=== PATIENT | female | born 1940 | race Caucasian/White ===

== ENCOUNTER → 2018-10-26 | Outpatient (CLI) | payer OTHER | LOC: MRI 10:00 | DX: M47.26 Other spondylosis with radiculopathy, lumbar region (principal) ==

== ENCOUNTER → 2019-05-12 | Outpatient (CLI) | payer OTHER ==
[~2019-05-12] VITALS: Ht 154.9 cm; Wt 76.2 kg
[~2019-05-12] MED LIST: ALLERGY25 MG PO; APAP650 PO; BREO ELLIPTA 11 EACH INH; CYCLOBENZAPRINE5 MG PO; DICLOFENAC POTA50 MG PO; FUROSEMIDE 20 M20 M1 PO; LIPITOR40 MG PO; PROAIR HFA8.5 GM INH; PROTONIX40 M2 PO; SINGULAIR 10 MG10 MG PO; TYLENOL WITH CO1 TA1 PO; ULTRAM50 MG PO; VENLAFAXINE HC150 M1 PO
[2019-05-12 13:14] VITALS: BP 130/78
--- NOTE | 2019-05-12 13:41 | NUR ---
Pain Clinic Assessment: 1. History of Osteoarthritis: B/L HANDS "ALL OVER" History of Rheumatoid Arthritis: NONE 2. Height: 5 ft. 1 in. 154.9 cm. Weight: 168.0 lb. oz. 76.204 kg. Patient's BMI: 31.8 3. Vital Signs: BP: 130/78 Pulse: 88 Resp: 14 Temp: 02 Sat: 97 ECG Mon: 4. Pain Intensity: 5 SHOULDER AREA 5. Fall Risk: Dizziness: Y Needs help standing or walking: N Fallen in the last 3 months: N Fall risk comments: 6. Patient on Blood Thinner: None 7. History of Hypertension: Y 8. Opioid Therapy greater than 6 weeks: N Opiate Contract Signed: 9. Risk Assessment Tool Provided: 10. Functional Assessment Tool: 11. Recreational Drug Use: Never Drug Type: Tobacco Use: Never Smoker Tobacco Type: Amount or Packs/day: How Many Years: Alcohol Use: No Frequency: Quant:
--- NOTE | 2019-05-18 07:45 | HPC ---
[facility] [address] [place] [address] PAIN MANAGEMENT CONSULTATION Name: RUBY LILLY Room #: REG KAREN Rajwinder#: [id number] Admission: 05/12/19 Attend Phys: Charlie Cisneros DO Discharge: Date of : 39 Report #: [id number] THIS REPORT FOR: cc: Roger Donis MD, Alberto MD Johnson, James E. DO ~ DATE OF SERVICE: 05/12/2019 CHIEF COMPLAINT: Neck pain, upper back pain. HISTORY OF PRESENT ILLNESS: As you know, the patient is a 78-year-old female who is suffering from chronic neck pain, upper back pain that has been present for an extended period of time. The patient states the pain began somewhere in the 1970s. She indicates no injury or trauma that may have led to symptom development. She states that she intermittently gets symptoms that radiate into the thoracic spine. She has trialed conservative treatment options including [id number]-thg-csukikg medications and chiropractic manipulation. Unfortunately, this has not been successful in alleviating symptoms. She has had a cervical fusion in 1996, but has had no other surgeries to address any of her issues. Due to lack of improvement with conservative treatment, she was subsequently sent for imaging. The imaging of the lumbar spine was completed, which showed mild changes due to facet arthropathy. No significant pathology. There is no imaging of the cervical and thoracic spine, the area of the patient's current reported discomfort. The patient indicates pain is intermittent and transient. She describes the pain as burning, aching, pulling, sharp and stabbing. She denies electrical numbness or tingling sensations. She places current pain score 3/10, daily average of 6/10, worst pain has been is 6/10. The patient states that walking and standing exacerbates symptoms, utilization of heat over her upper back and massage as well as minor improvement with chiropractic manipulation has been the only source of improvement. She has been referred to our service to discuss treatment options for chronic pain present since . PAST MEDICAL HISTORY: 1. History of rheumatic fever. 2. Bleeding and bruising tendencies. 3. Anemia. 4. Asthma. 5. Chronic obstructive pulmonary disease. 6. Coronary artery disease. 7. Chronic colon problems. 8. Degenerative joint disease. 9. Osteoarthritis. [address] [address] PAIN MANAGEMENT CONSULTATION Name: RUBY LILLY [id number] Admission: 05/12/19 Attend Phys: Charlie Cisneros DO Discharge: Date of : 39 Report #: [id number] 10. Peptic ulcer disease. PAST SURGICAL HISTORY: 1. Hysterectomy. 2. Cervical fusion with autologous grafting. 3. Cholecystectomy. 4. Colectomy. 5. Ileal anastomosis. 6. Repeat colectomy. SOCIAL HISTORY: The patient denies tobacco, alcohol, IV or illicit drug use. She is retired, retired years ago. She is not receiving workmen's compensation nor is trying to obtain discrete benefits. She is not accompanied at today's visit. REVIEW OF SYSTEMS: Positive for fatigue, weakness, frequent and recurrent headaches, wearing corrective eyewear, blurred and double vision, hearing loss with tinnitus, earaches with drainage, chronic sinus problems with rhinitis, shortness of breath walking or lying flat, heart trouble, intermittent chest pains and palpitations, frequent and recurrent coughs, shortness of breath, asthma, wheezing, peptic ulcer disease, frequent urination, nocturia, incontinence or dribbling to urine, lightheadedness and dizziness, numbness and tingling sensations, depression, insomnia, bleeding and bruising tendencies. All other review of systems negative per 12-point review of systems other than those listed in history of present illness. Pain impact score 27/70 indicating moderate interference of daily activities secondary to pain. ALLERGIES: No reported drug allergies. CURRENT MEDICATIONS: Acetaminophen Extra Strength 650 mg twice a day, diphenhydramine 25 mg per day, cyclobenzaprine 5 mg t.i.d., Tylenol No. 3 with Codeine 1 tab twice a day p.r.n., albuterol 2 puffs q. 4 hours p.r.n., Breo Ellipta 100/25 mcg inhaled once a day, venlafaxine 150 mg once a day, furosemide 20 mg per day, montelukast sodium 10 mg per day, pantoprazole 40 mg per day, atorvastatin 40 mg per day. IMAGING: MRI lumbar spine obtained 10/26/2018 shows mild degenerative changes, no central canal neural foraminal stenosis. The most definitive changes are at the L4-L5 level, which shows severe bilateral facet hypertrophy, though only mild central canal stenosis and no neural foraminal stenosis. PQRS: The patient has known osteoarthritic changes of the lumbar spine, bilateral hands, bilateral knees and hips. No rheumatoid arthritis. She is placing current pain score around 5/10, located in the upper thoracic and cervical area. She is not a fall risk, has not had a fall in last 3 months. She is not on blood thinners, but is treated for hypertension. She is not on [address] [address] PAIN MANAGEMENT CONSULTATION Name: RUBY LILLY Room #: REG WIL[place] Rajwinder#: [id number] Admission: 05/12/19 Attend Phys: Charlie Cisneros DO Discharge: Date of : 39 Report #: [id number] chronic opioids, has a low opioid addiction potential based on our assessment tool. Pain impact score 27/70 indicating moderate interference of daily activities secondary to pain. PHYSICAL EXAMINATION: VITAL SIGNS: Blood pressure 130/78, pulse 88, respiratory rate 14 and unlabored. The patient is 97% on room air. Height 5 feet 1 inch tall, weight 168 pounds, BMI calculated 31.8. GENERAL: Well-developed, well-nourished, well-hydrated 78-year-old female appearing stated age, pain is rated today 5/10 involving the cervical and upper thoracic area. HEENT: Normocephalic, atraumatic. Pupils equal, round, reactive to light. Extraocular muscles are intact. Sclerae nonicteric without injection. NEUROLOGIC: Cranial nerves 2-12 grossly intact. Speech is fluent. The patient deemed a good historian. LUNGS: Clear, no wheeze, rhonchi or rales. CARDIOVASCULAR: Regular. No appreciable gallop, no rub. ABDOMEN: Soft, mildly obese, normoactive bowel sounds. EXTREMITIES: Show no clubbing, no cyanosis, no edema. MUSCULOSKELETAL: The patient has palpatory tenderness over the paraspinal musculature of the cervical spine, upper thoracic area just down to the mid scapular region. There are no changes in skin color or texture overlying area. There is no spinous process tenderness. Upper extremity strength appears symmetrical, but deconditioned. She is intact to light touch from C5 through T1 dermatomes, again from T1 through T12 dermatomes and intact for light touch in the lumbar area L1 through S2 dermatomes. Deep tendon reflexes are symmetrical in upper extremities, biceps, brachialis and triceps. Spurling's test is equivocal. There is significant cervical restriction of motion with lateral flexion barely able to obtain a 10-degree tilt. The patient has [id number] rotational limitations of the cervical spine bilaterally. Forward flexion of the cervical spine appears only mildly restricted. Extension appears normal. Pain is elicited with all maneuvers. ASSESSMENT: 1. Chronic cervicalgia. 2. Likely cervical radiculopathy. 3. 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 4. Myofascial pain. PLAN: 1. Based on today's physical exam and history, patient has provided the description the patient uses in regards to pain as well as location of symptoms, likely source of the patient's pain is due to cervical facet arthropathy. As you are aware, patient underwent a cervical fusion, back in 1996 with autologous grafting. There is a strong possibility the patient is seeing changes above and below this fusion level, though I do not have imaging to confirm the extent of [address] [address] PAIN MANAGEMENT CONSULTATION Name: RUBY LILLY Room #: REG KAREN Purdy#: [id number] Admission: 05/12/19 Attend Phys: Charlie Cisneros DO Discharge: Date of : 39 Report #: [id number] which the changes would be by physical exam, it would not be at all surprising to see significant changes in the cervical spine. This was discussed with the patient today. I feel her upper back symptoms, bilateral neck pain and the symptoms radiating over the head are due to cervical changes, likely secondary to the fusion she had in 1996. We discussed the patient treatment options based on the physical exam and the distribution of symptoms today. The following was discussed with the patient. We discussed physical therapy, stretching exercises and traction techniques as an option for treatment. She can do this either through a formalized physical program or could be seen by her chiropractor who has been treating her symptoms fairly consistently. We discussed medication management initiating a low dose opioid like medication that can be continued through her primary care physician. We also discussed the possibility of adding neuropathic medication as well and a consistent nonsteroidal anti-inflammatory. We discussed further evaluation, having the patient undergo imaging of the cervical spine, which is the source of the patient's symptoms with the discussions of those findings. Surgical options may be necessary. After reviewing the risks and benefits of all proposed treatment options, patient chose to begin with medication management. 2. We took the liberty of reviewing the patient's MRI with her today. I am pleased to advise there is no central canal or neural foraminal stenosis, significant enough to cause any problems. The patient is not experiencing any axial back pain nor she is experiencing any symptoms radiating down the legs concerning of lumbar radiculopathy. She has mild arthritic changes which are surprisingly minimal given her advanced age and body size. We discussed this with the patient today. There were no interventions are going to be necessary in this area at this point in time. 3. We will start the patient on tramadol 50 mg dose. She can take 1-2 tabs p.r.n. as needed. We have given the patient #120 tablets, advised the patient to take the medication only when pain is intolerable, not to rely on the medication prophylactically. She will initiate the medication today and continue the therapy as directed. If it is effective, she can follow up with her PCP to continue the treatment. This will not require the specialty of pain management to continue this low dose therapy. We will trial the medication over the next 30 days, having her return to discuss the efficacy. If everything appears stable, we will write medication for her to follow up with PCP. 4. The patient was provided prescription of diclofenac potassium. This will provide anti-inflammatory activity for her baseline pain. I have given the patient # 60 tablets to take twice a day, 1 in the morning, 1 at around 1-2:00 in the afternoon. We are utilizing the 50 mg dose to gain efficacy with a potential less side effects. She will watch for side effects of dyspepsia, worsening of blood pressure, lower extremity edema. If she notes any side effects, discontinue immediately, call for further instructions. Otherwise, continue the medication as directed. The patient indicates that she has no known kidney dysfunction. We will be monitoring this if she does remain on the medication on a consistent basis. [address] [address] PAIN MANAGEMENT CONSULTATION Name: RUBY LILLY Room #: REG [facility] Rajwinder#: [id number] Admission: 05/12/19 Attend Phys: Charlie Cisneros DO Discharge: Date of : 39 Report #: [id number] 5. We have plans to see the patient back in followup visit in 1 month. If she is doing well at that time, we will write medications for her to return to her PCP to continue treatment. I am hopeful that she will see good and prolonged benefit. We have recommended though that the patient undergo x-ray imaging today, so that we have better information about the cervical spine and her autologous fusion done in 1996. We will have the patient undergo the x-ray imaging, we will have those available for the primary care team if they wish to have copy of this information. The patient can contact our clinic tomorrow for the findings. 6. We wish to thank nurse practitioner, Genesis Paredes for the opportunity to see this patient in consultation. We will keep you apprised of her response to the recommended treatment for her chronic cervicalgia and likely cervical radicular pain. Again, we wish to thank you for the opportunity to see this patient in consultation. <ELECTRONICALLY SIGNED> By: Charlie Cisneros DO 05/18/19 [id number] [id number] Charlie Cisneros DO /nt
== END ==
LOC: PAIN 07:02
DX: M47.22 Other spondylosis with radiculopathy, cervical region (principal); M79.18 Myalgia, other site

== ENCOUNTER → 2019-08-06 | Outpatient (CLI) | payer OTHER | LOC: CAT 12:19 → RAD 14:18 | DX: K44.9 Diaphragmatic hernia without obstruction or gangrene (principal); J34.2 Deviated nasal septum; J32.9 Chronic sinusitis, unspecified; J45.50 Severe persistent asthma, uncomplicated ==

== ENCOUNTER → 2019-10-12 | Outpatient (CLI) | payer OTHER ==
[~2019-10-12] VITALS: Ht 154.9 cm; Wt 75.6 kg
[~2019-10-12] MED LIST changes: +DICLOFENAC SOD50 M1 PO; +DILTIAZEM ER180 M2 PO; +EFFEXOR XR150 MG PO; +FLONASE 0.05%50 MCG NASAL; +TRAMADOL 50 MG50 MG PO
--- NOTE | ~2019-10-12 | HPC ---
[facility] [address] [place] [address] PAIN MANAGEMENT CONSULTATION Name: RUBY LILLY Room #: REG KAREN Rajwinder#: [id number] Admission: 10/12/19 Attend Phys: Charlie Cisneros DO Discharge: Date of : 39 Report #: [id number] THIS REPORT FOR: cc: Roger Donis MD,Charlie Sinha MD, DO ~ CC: Roger Cisneros DATE OF SERVICE: 10/12/2019 REFERRING PHYSICIAN: Roger Donis MD. CHIEF COMPLAINT: Neck pain, left head pain. HISTORY OF PRESENT ILLNESS: As you know, the patient is a 78-year-old female suffering from chronic neck pain, upper back pain that has been present for an extended period of time. The patient states pain began in the 1970s. She was seen in consultation per the request of Dr. Donis where we advised the patient trial of conservative treatment options. She was given tramadol and diclofenac potassium for baseline pain and sent to physical therapy for cervicalgia. The patient did not undergo the physical therapy. She has trial of the medications with some benefit. She returns today stating pain is now located on the left side and is able to locate the symptoms directly over the C2-C3 level. She wishes to undergo interventional treatment to address this issue. She is placing her pain today at 5/10. She has sought chiropractic manipulation, which has improved symptoms for approximately 12 hours. After this, her pain returns quite quickly. She has been advised she has an occipital neuralgia and that she has an impinged occipital nerve. ALLERGIES: No known drug allergies. CURRENT MEDICATIONS: Tramadol, pantoprazole, montelukast sodium, diltiazem, diclofenac, albuterol, atorvastatin, venlafaxine and fluticasone. SOCIAL HISTORY: The patient denies tobacco, alcohol, IV or illicit drug use. She is retired, retired years ago, unaccompanied at today's visit. IMAGING: No new imaging available. PQRS: The patient has known arthritic changes of the lumbar spine, bilateral hands, bilateral knees and hips. No rheumatoid arthritis. She is placing pain intensity today at 5/10. She is not a fall risk nor has she had a fall in last 3 months. She is not on blood thinners, but is treated for hypertension. She is not on chronic opioids, but does have a low opiate addiction potential based [address] [address] PAIN MANAGEMENT CONSULTATION Name: RUBY LILLY Room #: REG [facility]#: [id number] Admission: 10/12/19 Attend Phys: Charlie Cisneros DO Discharge: Date of : 39 Report #: [id number] on our assessment tool. Pain impact 27/70, moderate interference of daily activities secondary to pain. PHYSICAL EXAMINATION: VITAL SIGNS: Blood pressure 134/88, pulse is 89, respiratory rate 14 and unlabored. The patient is 97% on room air. Height 5 feet 1 inch tall, weight 166.6 pounds, BMI calculated 31.5. GENERAL: Well-developed, well-nourished, well-hydrated, 78-year-old female in no acute distress. Awake, alert and oriented x 3. Pain is rated around 5/10. HEENT: Normocephalic, atraumatic. Pupils equal, round, reactive to light. EXTREMITIES: Show no clubbing, no cyanosis, and no edema. MUSCULOSKELETAL: There is palpatory tenderness noted over the paraspinal musculature of cervical spine on the left, negative right. Cervical provocation testing is met with slight increase in pain directly over the C2-C3 area on the left, negative right. Deep palpation of the area causes intensification of pain with radiation of symptoms towards the occiput consistent with third occipital neuralgia. The patient is noted to have increasing pain with rotation, lateral flexion to the left consistent with cervical facet arthropathy. ASSESSMENT: 1. 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 2. 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 3. Myofascial pain. 4. Chronic intractable pain. PLAN: 1. The patient returns today in followup visit with pain radiating from the upper left neck over the occiput in the distribution of the third occipital nerve. The patient and I did discuss at length the treatment options available for the third occipital neuralgia. The following was discussed with the patient today. We discussed to initiate physical therapy with traction, which could be quite beneficial for the patient. I do feel this will be necessary as part of the treatment option. We also discussed suggestions of treatment options from a medication standpoint including neuropathic pain medications such as amitriptyline, nortriptyline, Cymbalta, Lyrica or gabapentin. We discussed with the patient injection in the C2-C3 facet joint on the left as well as a field block to address the third occipital nerve directly. We also discussed surgical options with the patient after reviewing risks and benefits of all proposed treatment options, the patient chose to undergo third occipital nerve block in C2-C3 intra-articular facet joint injection. 2. The patient was advised risks and benefits of a C2-C3 intra-articular facet injection in third occipital nerve block. These risks include but are not necessarily limited to bleeding, bruising, infection, worsening pain, no relief of pain, also risk of temporary or permanent muscle weakness, temporary or [facility] [address] [place] [address] PAIN MANAGEMENT CONSULTATION Name: RUBY LILLY Room #: REG KAREN Purdy#: [id number] Admission: 10/12/19 Attend Phys: Charlie Cisneros DO Discharge: Date of : 39 Report #: [id number] permanent nerve damage, possible paralysis and . The patient states understood and wished to proceed. 3. No medication changes made at today's visit. I did provide the patient with refill of her tramadol for which she is to take one-half tab p.o. q.8 hours p.r.n. for pain. I have given the patient a total of #120, which should be more than a couple months' worth of pain medication. She is denying side effects to the half a dose of tramadol at this time, we recommend she can utilize this on a p.r.n. basis. Prescription was provided without refills. 4. We will see the patient back in followup visit on an as needed basis. We are hopeful the patient will see good and prolonged benefit with today's procedure. PROCEDURE NOTE DESCRIPTION OF PROCEDURE: Left C2-C3 intra-articular facet injection under fluoroscopic guidance and third occipital nerve block. After obtaining written consent, the patient was taken back to fluoroscopy suite, placed in prone position with separate pillows under chest and forehead to decrease cervical lordosis. Skin overlying the left upper cervical area was prepped and draped in aseptic fashion using chlorhexidine. A sterile marker was used to cole the area of the C2-C3 facet joint and the third occipital nerve injection. The skin and subcutaneous tissue was then anesthetized with 3 mL of 1% lidocaine utilizing a 27-gauge 1-1/4 inch needle. A 20-gauge 3-1/2 inch spinal needle with bent tip was then advanced towards the left C2-C3 facet joint under fluoroscopic guidance. Needle was advanced until reaching the inferior aspect of the facet joint. We then changed imaging to lateral and the needle was then advanced into the C2-C3 facet joint under lateral fluoroscopic imaging. After entering the joint, aspiration was noted to be negative for heme. After this aspiration noted to be negative for heme, 1 mL of a solution containing 1 mL 40 mg per mL, 40 mg total triamcinolone and 3 mL of bupivacaine 0.5% was injected slowly. Needle was retracted approximately 3 mm and repositioned to address the third occipital nerve. After negative aspiration for heme, the remainder of the solution above was injected in a fanned out distribution. Needle was retracted approximately half way, flushed with 0.5 mL of lidocaine 1% and removed. Sterile bandage was placed over injection site. The patient tolerated procedure well, carefully escorted to recovery room in stable condition. VAS before procedure was rated at 5/10, VAS 10 minutes after [address] [address] PAIN MANAGEMENT CONSULTATION Name: RUBY LILLY Room #: REG KAREN Purdy#: [id number] Admission: 10/12/19 Attend Phys: Charlie iCsneros DO Discharge: Date of : 39 Report #: [id number] procedure rated at 06/17. After meeting our discharge criteria, the patient is discharged home. By: [id number] Charlie Cisneros DO /nt
[2019-10-12 10:37] VITALS: BP 134/88
--- NOTE | 2019-10-12 11:03 | NUR ---
Pain Clinic Assessment: 1. History of Osteoarthritis: B/L HANDS "ALL OVER" History of Rheumatoid Arthritis: NONE 2. Height: 5 ft. 1 in. 154.9 cm. Weight: 166.6 lb. oz. 75.569 kg. Patient's BMI: 31.5 3. Vital Signs: BP: 134/88 Pulse: 89 Resp: 14 Temp: 02 Sat: 97 ECG Mon: 4. Pain Intensity: 5 5. Fall Risk: Dizziness: Y Needs help standing or walking: N Fallen in the last 3 months: N Fall risk comments: 6. Patient on Blood Thinner: None 7. History of Hypertension: Y 8. Opioid Therapy greater than 6 weeks: N Opiate Contract Signed: 9. Risk Assessment Tool Provided: LOW RISK 03/12 10. Functional Assessment Tool: 11. Recreational Drug Use: Never Drug Type: Tobacco Use: Never Smoker Tobacco Type: Amount or Packs/day: How Many Years: Alcohol Use: No Frequency: Quant:
== END | disposition home or self-care (01) ==
LOC: PAIN 06-09 07:53
PROVIDERS: ATTEND Anesthesiology Pain Medicine
DX: M54.2 Cervicalgia (principal); M47.22 Other spondylosis with radiculopathy, cervical region; G89.29 Other chronic pain; R51 Headache; Z79.899 Other long term (current) drug therapy; Z98.890 Other specified postprocedural states

== ENCOUNTER → 2020-05-31 | Outpatient (CLI) | payer OTHER ==
[~2020-05-31] VITALS: Ht 154.9 cm; Wt 75.5 kg
[2020-05-31 10:29] VITALS: BP 148/88
--- NOTE | 2020-05-31 10:45 | NUR ---
Pain Clinic Assessment: 1. History of Osteoarthritis: B/L HANDS "ALL OVER" History of Rheumatoid Arthritis: NONE 2. Height: 5 ft. 1 in. 154.9 cm. Weight: 166.4 lb. oz. 75.479 kg. Patient's BMI: 31.5 3. Vital Signs: BP: 148/88 Pulse: 87 Resp: 18 Temp: 02 Sat: 95 ECG Mon: 4. Pain Intensity: 5 5. Fall Risk: Dizziness: N Needs help standing or walking: N Fallen in the last 3 months: N Fall risk comments: 6. Patient on Blood Thinner: None 7. History of Hypertension: Y 8. Opioid Therapy greater than 6 weeks: N Opiate Contract Signed: 9. Risk Assessment Tool Provided: LOW RISK 03/12 10. Functional Assessment Tool: 11. Recreational Drug Use: Never Drug Type: Tobacco Use: Never Smoker Tobacco Type: Amount or Packs/day: How Many Years: Alcohol Use: No Frequency: Quant:
--- NOTE | 2020-06-02 14:52 | HPC ---
[facility] [place] [address] PAIN MANAGEMENT CONSULTATION Name: RUBY LILLY Room #: REG KAREN Rajwinder#: [id number] Admission: 05/31/20 Attend Phys: Charlie Cisneros DO Discharge: Date of : 38 Report #: [id number] THIS REPORT FOR: cc: Roger Donis MD,Roger Cisneros,Charlie Figueroa DO ~ DATE OF SERVICE: 05/31/2020 REFERRING PHYSICIAN: Roger Donis MD CHIEF COMPLAINT: Neck pain, left head pain and headaches. HISTORY OF PRESENT ILLNESS: As you know, the patient is a very pleasant 79-year-old female who returns today in followup visit to address recurrent neck pain, left head pain and headache. She underwent left C2-C3 intra-articular facet injection and third occipital nerve block at our visit of 10/12/2019 with prolonged benefit. The patient reports symptoms of relief of greater than 60%, lasting for 4-5 months. Unfortunately, her symptoms have begun to return. She returns today in followup visit to undergo next in the series of left intra-articular facet injections at C2-C3 and a third occipital nerve block. The patient denies any new injury or trauma that may have led to symptom development. Distribution of symptoms is similar to our evaluation on 10/12/2019. ALLERGIES: No known drug allergies. CURRENT MEDICATIONS: Tramadol 50 mg every 6 hours p.r.n. pain, pantoprazole 40 mg per day, montelukast sodium 10 mg once a day, diclofenac sodium 50 mg twice a day, albuterol 2 puffs q. 4 hours p.r.n., fluticasone 1 spray each nostril per day, venlafaxine 150 mg once a day, atorvastatin 40 mg per day. SOCIAL HISTORY: The patient denies tobacco, alcohol, IV or illicit drug use. She is retired, retired years ago, unaccompanied today. IMAGING: No new imaging available. PQRS: The patient has known arthritic change of the lumbar spine, bilateral hands, bilateral knees and hips as well as cervical spine. She has no diagnosis of rheumatoid arthritis. She is placing pain intensity at 5/10. She is not a fall risk, has not had a fall in last 3 months, not on blood thinners, but is treated for hypertension. She is on tramadol and has a low opioid addiction potential. Pain impact is 27/70, moderate interference of daily activities secondary to pain. PHYSICAL EXAMINATION: VITAL SIGNS: Blood pressure 148/88, pulse 87, respiratory rate [address] [address] PAIN MANAGEMENT CONSULTATION Name: RUBY LILLY Room #: REG [facility].#: [id number] Admission: 05/31/20 Attend Phys: Charlie Cisneros DO Discharge: Date of : 38 Report #: [id number] unlabored. The patient is 95% on room air. Height 5 feet 1 inch tall, weight 166.4 pounds, BMI calculated at 31.5. GENERAL: Well-developed, well-nourished, well-hydrated, 79-year-old female. She is appearing stated age. She is placing pain today at 5/10. HEENT: Normocephalic, atraumatic. NEUROLOGIC: Cranial nerves are symmetrical. She is wearing a mask in compliance with COVID-19 regulations. EXTREMITIES: Show no clubbing, no cyanosis, and no appreciable edema. MUSCULOSKELETAL: The patient once again is exquisitely tender to palpation over the left upper cervical area directly overlying the C2-C3 facet joint. Cervical provocation testing is met with increased pain in the upper cervical area consistent with C2-C3 facet joint. Pain is then elicited and radiates over the top of the head in third occipital distribution. Deep palpation in the area causes per radiation of symptoms from the left neck over the top of the head consistent with tension headache/third occipital neuralgia. ASSESSMENT: 1. Third occipital neuralgia. 2. Cervical spondylosis without radiculopathy. 3. Chronic headache. 4. Myofascial pain. 5. Chronic intractable pain. PLAN: 1. The patient has returned today in followup visit having noted excellent benefit with the left C2-C3 intra-articular facet injection and medial branch nerve blocks provided in December. She received greater than 60% improvement in overall pain lasting for 4-5 months. Unfortunately, the patient's symptoms have begun to return. She is now placing pain score around 5/10. She returns requesting to undergo next in the series of these injections in hopes of analgesic benefit. The patient has been advised risks and benefits of procedure, states understood and wished to proceed. 2. No medication changes made at today's visit. The patient will continue current medical therapy as prior prescribed. 3. We plan to see the patient back in followup visit on an as needed basis for the next in the series of injections. PROCEDURE NOTE DESCRIPTION OF PROCEDURE: Left C2-C3 intra-articular facet injection under fluoroscopic guidance with third occipital nerve block. After obtaining written consent, the patient was taken back to fluoroscopy suite, placed in a prone position with separate pillows under chest and forehead to decrease cervical lordosis. Skin overlying the left cervical area was prepped and draped in aseptic fashion using chlorhexidine. A sterile marker was [address] [address] PAIN MANAGEMENT CONSULTATION Name: RUBY LILLY Room #: REG [facility]#: [id number] Admission: 05/31/20 Attend Phys: Charlie Cisneros DO Discharge: Date of : 38 Report #: [id number] used to cole the area directly overlying the C2-C3 facet joint and the distribution of the third occipital nerve. Skin and subcutaneous tissue were then anesthetized with 3 mL of 1% preservative-free lidocaine with a 27-gauge 1-1/4 inch needle. A 20-gauge 3-1/2 inch spinal needle with bent tip was advanced towards the left C2-C3 facet joint under fluoroscopic guidance. Needle was advanced until reaching the inferior aspect of the facet joint. We then obtained imaging, both in AP and lateral positions to confirm needle positioning. The needle was then advanced into the facet joint under lateral fluoroscopic imaging. After entering the joint, aspiration was noted to be negative for heme. After negative aspiration for heme, 1 mL of a solution containing 1 mL, 40 mg per mL, 40 mg total triamcinolone and 3 mL of bupivacaine 0.5% was injected slowly. Needle was retracted approximately 2 mm and aspiration was then again noted to be negative for heme. After negative aspiration for heme, the remaining solution was then injected in a fanned out distribution to obtain the third occipital nerve block. Needle was then retracted approximately half way, flushed with 1 mL of 1% lidocaine and removed. A sterile bandage was then placed over injection site. The patient was able to move all 4 extremities purposely after the procedure. The patient tolerated procedure well, carefully escorted to recovery room in stable condition. No apparent complications. VAS before procedure rated at 5/10, VAS 10 minutes after procedure is 0/10. After meeting our discharge criteria, the patient discharged home. <ELECTRONICALLY SIGNED> By: Charlie Cisneros DO 06/02/20 [id number] Charlie Cisneros DO /nt
== END | disposition home or self-care (01) ==
LOC: PAIN 11-02 06:45
PROVIDERS: ATTEND Anesthesiology Pain Medicine
DX: M47.812 Spondylosis without myelopathy or radiculopathy, cervical region (principal); M54.81 Occipital neuralgia; R51.9 Headache, unspecified; M79.18 Myalgia, other site; G89.29 Other chronic pain; I10 Essential (primary) hypertension; M19.90 Unspecified osteoarthritis, unspecified site; Z98.890 Other specified postprocedural states; Z79.899 Other long term (current) drug therapy